=== PATIENT | female | born 1995 | race Caucasian/White ===

== ENCOUNTER → 2021-07-08 | Outpatient (CLI) | payer OTHER | LOC: KOH-I 15:31 | DX: M54.2 Cervicalgia (principal) | CPT/HCPCS: 72040 ==

== ENCOUNTER → 2021-07-21 | Outpatient (CLI) | payer OTHER | LOC: KOH-I 09:03 | DX: B18.2 Chronic viral hepatitis C (principal) | CPT/HCPCS: 76705 ==